=== PATIENT | female | born 1985 | race Caucasian/White ===

== ENCOUNTER 2019-03-12 11:24 | Emergency (ER) | payer OTHER ==
[~2019-03-12] VITALS: Ht 162.6 cm; Wt 92.5 kg
[~2019-03-12 11:24] MED LIST: PR NATAL 400 C1 EACH PO
[2019-03-12] MEDS ORDERED: ADIPEX-P37.5 MG PO (11:44)
[2019-03-12] MEDS ORDERED: LEXAPRO 10 MG T10 M1 PO (11:44)
[2019-03-12] MEDS ORDERED: ALDACTONE50 MG PO (11:44)
[2019-03-12] MEDS ORDERED: NORCO 5-325 TA1 EACH PO (12:51)
[2019-03-12 13:06] VITALS: BP 136/98
== END 2019-03-12 13:09 | disposition home or self-care (01) ==
LOC: M.ERS 11:24
DX: S82.832A Other fracture of upper and lower end of left fibula, initial encounter for closed fracture (principal); F32.9 Major depressive disorder, single episode, unspecified; F41.9 Anxiety disorder, unspecified; Z88.8 Allergy status to other drugs, medicaments and biological substances; X50.3XXA Overexertion from repetitive movements, initial encounter; Y93.89 Activity, other specified; Y92.89 Other specified places as the place of occurrence of the external cause; Y99.8 Other external cause status

== ENCOUNTER 2019-05-28 18:20 | Emergency (ER) | payer OTHER ==
[~2019-05-28 18:20] MED LIST changes: +ADIPEX-P37.5 MG PO; +ALDACTONE50 MG PO; +LEXAPRO 10 MG T10 M1 PO; +NORCO 5-325 TA1 EACH PO
== END 2019-05-28 18:46 | disposition left against medical advice (07) ==
LOC: M.ERS 18:20
DX: Z53.21 Procedure and treatment not carried out due to patient leaving prior to being seen by health care provider (principal)